=== PATIENT | female | born 1950 | race Caucasian/White ===

== ENCOUNTER 2019-03-27 00:52 | Inpatient (IN) ==
[2019-03-27] MEDS ORDERED: HYDROmorphone HCL 1 MG/ML DISP.SYRIN IV ONE ×2 (01:12→01:46)
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
[2019-03-27 01:28] LABS: Hematocrit 32.2 % (37.0-47.0); Hemoglobin 11.4 gm/dL (12.5-16.0); Mean Cell Volume 95.5 fl (78-100); Mean Corpuscular Hemoglobin 33.8 pg (27-31); Mean Corpuscular Hgb Conc 35.4 g/dl (32-36); Mean Platelet Volume 8.3 fl (8-12.5); Neutrophil # 10.8 K/mm3 (1.3-6.0); Neutrophil % 81.6 % (42-75.0); Platelet Count 255 K/mm3 (150-450); Red Blood Count 3.37 M/mm3 (4.2-5.4); Red Cell Distribution Width 11.9 % (11.5-14.0); White Blood Count 13.2 K/mm3 (4.0-10.5)
[2019-03-27] MEDS ORDERED: ONDANSETRON HCL/PF 2 MG/ML VIAL IV ONE (01:28)
[2019-03-27 01:57] LABS: Albumin * 3.5 gm/dl (3.4-5.0); Anion Gap 18.5 mmol/L (6.8-13.8); BUN/Creatinine Ratio 10.4 (9.0-21.6); Bilirubin, Total 0.4 mg/dL (0.0-1.1); Ca. Corrected For Albumin 7.7 mg/dL (8.4-10.2); Calcium * 7.6 mg/dL (7.9-10.9); Carbon Dioxide 22.1 mmol/L (24-32.6); Potassium 3.6 mmol/L (3.4-4.6); Total Protein 6.5 gm/dL (6.2-8.2)
[2019-03-27] MEDS ORDERED: NORMAL SALINE 1,000 ML IV ONE (03:11)
[2019-03-27] MEDS: NORMAL SALINE 1,000 ML IV PRN ×3 (03:51→14:24)
[2019-03-27] MEDS ORDERED: MORPHINE SULFATE 2 MG/ML DISP.SYRIN IV ONE (07:04)
--- NOTE | 2019-03-27 09:18 | ANES ---
Anesthesia Pre Procedure Eval Vitals/Labs: Last Vital Signs Temp 36.6 C 03/27/19 08:24 Pulse 80 03/27/19 08:24 Resp 20 03/27/19 08:24 BP 135/69 03/27/19 08:24 Pulse Ox 93 03/27/19 08:24 HOME MEDICATIONS Cholecalciferol (Vitamin D3) [Vitamin D3] 1,000 unit PO DAILY 03/27/19 [Last Taken Unknown] Allergies/Adverse Reactions: Allergies Allergy/AdvReac Type Severity Reaction Status Date / Time codeine Allergy Verified 03/27/19 07:39 Penicillins Allergy Verified 03/27/19 07:39 Sulfa (Sulfonamide Allergy Verified 03/27/19 07:39 Antibiotics) - Planned Procedure Planned Procedure: RIGHT HIP FRACTURE Medication List Reviewed:: Yes Allergies Verified: Yes Medical History (Updated 03/27/19 @ 02:21 by Bennie Bethea MD) No pertinent past medical history Surgical History (Updated 03/27/19 @ 01:01 by Annette Martinez) H/O section Family History (Updated 03/27/19 @ 07:38 by Adia Patel RN) Other No known problems - Family Anesthesia History Family History:: no untoward family reactions to anesthesia, no familial bleeding tendencies, no family history of clotting disorders, no family history of premature - Airway/Neck/Teeth Within Normal Limits:: Yes Teeth Condition: intact Neck Exam: full range of motion Mallampatti Score: 3 Thyromental (T-M) distance: > 6 cm Mandibulo Hyoid distance: > 3 cm - Respiratory Respiratory Physical: lungs clear Smoking Status: Current every day smoker - 1ppd, down from previous Discussed smoking cessation including day of surgery: Yes - yesterday Sleep Apnea currently treated: No Sleep Apnea by current assessment: No - although MP score difficult to assess - Cardiovascular Cardiac History: AK - By EKG, no previously known history Tolerate Activity: Fair Heart Sounds: S1 & S2, Regular - Anesthesia Assessment and Plan ASA Class: PS, II Anesthesia Type Plan: Spinal
[2019-03-27] MEDS ORDERED: ACETAMINOPHEN 325 MG TABLET PO PRN (09:32)
[2019-03-27] MEDS ORDERED: chlordiazePOXIDE HCL 25 MG CAPSULE PO PRN (09:34)
--- NOTE | 2019-03-27 10:06 | HP ---
Chief Complaint - Chief Complaint Date of Service: 03/27/19 Time of Service: 09:52 Chief Complaint: I fell and now I have right hip pain History of Present Illness: 69-year-old female with no significant past medical history was evalu ated in our ER after she was brought in by EMS for right hip pain and tenderness that occurred after she fell last night outside of her home. Patient reports she stepped into her backyard to view the full desir and when she turned around to go back inside the house she tripped and lost her balance. Patient reports falling onto her right side and has been unable to bear weight since then. She also started having muscle spasm in the area and said that she became very swollen on the right side of her hip. Patient was concerned enough to come in to the hospital. Medical History (Updated 03/27/19 @ 02:21 by Bennie Bethea MD) No pertinent past medical history Surgical History: Surgical History (Updated 03/27/19 @ 01:01 by Annette Martinez) H/O section Family History: Family History (Updated 03/27/19 @ 07:38 by Adia Patel RN) Other No known problems Social History: (Last Reviewed 03/27/19 @ 07:39 by Adia Patel RN) Tobacco: Smoking Status: Current every day smoker, 1ppd, down from previous Alcohol: alcohol intake: current alcohol intake frequency: 0-2 drinks per day Substance Use: substance use type: does not use Pets: pets and animals: dog(s) Peds Patient Hx - Developmental: No Pertinent Hx Peds Patient Hx - Medical: No Pertinent Hx Peds Patient Hx - Cardiac/Respiratory: No Pertinent Hx Peds Patient Hx - Surgical: No Surgical History Patient History - Cancer: No Hx of Cancer Review Of Systems (GEN) - Review of Systems Generalized/Overall Review: Present: No Symptoms Reported EENTM: Present: No Symptoms Reported Respiratory: Present: No Symptoms Reported Cardiac: Present: No Symptoms Reported Abdominal: Present: No Symptoms Reported Genitourinary: Present: No Symptoms Reported Musculoskeletal: Present: Joint Pain - Right hip pain and swelling Neurological: Present: No Symptoms Reported Skin: Present: No Symptoms Reported Endocrine: Present: No Symptoms Reported Allergies/Adverse Reactions: Allergies Allergy/AdvReac Type Severity Reaction Status Date / Time codeine Allergy Verified 03/27/19 07:39 Penicillins Allergy Verified 03/27/19 07:39 Sulfa (Sulfonamide Allergy Verified 03/27/19 07:39 Antibiotics) Home Medications: HOME MEDICATIONS Cholecalciferol (Vitamin D3) [Vitamin D3] 1,000 unit PO DAILY 03/27/19 [Last Taken Unknown] Exam - Exam Vital Signs: Vital Signs - Last Taken Temp 36.6 C 03/27/19 08:24 Pulse 80 03/27/19 08:24 Resp 20 03/27/19 08:24 BP 135/69 03/27/19 08:24 Pulse Ox 93 03/27/19 08:24 Constitutional: Present: Alert, Oriented x3, Cooperative, Well developed, Well nourished, Other - Patient is uncomfortable from right hip pain ENT Exam: Present: normal ENT inspection, hearing grossly normal, pharynx normal, TMs normal Eye Exam: bilateral eye: normal inspection, PERRL, EOMI Neck: Present: non-tender, full range of motion, supple, normal inspection, trachea midline Back Exam: Present: normal inspection, no CVA tenderness, no vertebral tenderness Breasts: Present: Exam deferred Respiratory: Present: chest non-tender, lungs clear, normal breath sounds, no respiratory distress, no accessory muscle use Cardiovascular/Chest: Present: normal peripheral pulses, regular rate, rhythm, no chest tenderness, no edema, no gallop, no JVD, no murmur, no rub Peripheral Pulses: carotid (R): 3+, carotid (L): 3+, femoral (R): 3+, femoral (L): 3+, dorsalis-pedis (R): 3+ Abdomen: Present: Normal bowel sounds, soft, nontender, nondistended, no rebound tenderness, no hepatospenomegaly, no masses /Rectal: Present: Exam deferred Extremity: Present: no pedal edema, no calf tenderness, lower extremity edema, leg pain, swelling, other - Right hip shortened and externally rotated with significant tenderness to palpation and edema, there are no signs of active bleeding externally and neurovascular function is intact. 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 nml as tested, normal cerebellar test, no motor/sensory deficits, alert, normal mood/affect, oriented x 3 Appearance: Present: appropriate appearance, appropriate insight, neat, no memory impairment Eye contact: Present: cooperative, good eye contact, normal speech Thoughts: Present: normal thought pattern, no apparent hallucination Diagnostic Studies: Abnormal Lab Results 03/27/19 03/27/19 Range/Units 01:12 01:12 WBC 13.2 H (4.0-10.5) K/mm3 RBC 3.37 L (4.2-5.4) M/mm3 Hgb 11.4 L (12.5-16.0) gm/dL Hct 32.2 L (37.0-47.0) % MCH 33.8 H (27-31) pg Immature Gran % (Auto) 0.50 H (0.001-0.429) % Immature Gran # (Auto) 0.06 H (0.000-0.0310) K/mm3 Neutrophils % 81.6 H (42-75.0) % Lymphocytes % 11.6 L (20-51) % Neutrophils # 10.8 H (1.3-6.0) K/mm3 Sodium 127 L (132-142) mmol/L Plasma Sodium 127 L (130-142) mmol/L Chloride 90 L (97-106) mmol/L Carbon Dioxide 22.1 L (24-32.6) mmol/L Anion Gap 18.5 H (6.8-13.8) mmol/L Est GFR (Non-Af Amer) 137 H (60-130) mL/min Calcium 7.6 L (7.9-10.9) mg/dL Calcium Adj for Albumin 7.7 L (8.4-10.2) mg/dL ALT 7 L (19-67) U/L Ethyl Alcohol 152.0 H (0.0-10.0) mg/dL Laboratory Results WBC 13.2 K/mm3 (4.0-10.5) H 03/27/19 01:12 RBC 3.37 M/mm3 (4.2-5.4) L 03/27/19 01:12 Hgb 11.4 gm/dL (12.5-16.0) L 03/27/19 01:12 Hct 32.2 % (37.0-47.0) L 03/27/19 01:12 MCV 95.5 fl (78-100) 03/27/19 01:12 MCH 33.8 pg (27-31) H 03/27/19 01:12 MCHC 35.4 g/dl (32-36) 03/27/19 01:12 RDW 11.9 % (11.5-14.0) 03/27/19 01:12 Plt Count 255 K/mm3 (150-450) 03/27/19 01:12 MPV 8.3 fl (8-12.5) 03/27/19 01:12 Immature Gran % (Auto) 0.50 % (0.001-0.429) H 03/27/19 01:12 Immature Gran # (Auto) 0.06 K/mm3 (0.000-0.0310) H 03/27/19 01:12 81.6 % (42-75.0) H 03/27/19 01:12 11.6 % (20-51) L 03/27/19 01:12 6.1 % (0.0-9) 03/27/19 01:12 0.0 % (0.0-3.0) 03/27/19 01:12 0.2 % (0.0-1.0) 03/27/19 01:12 Nucleated RBC % 0.0 k/mm3 (0-1) 03/27/19 01:12 10.8 K/mm3 (1.3-6.0) H 03/27/19 01:12 1.53 k/mm3 (1.5-3.5) 03/27/19 01:12 0.8 k/mm3 (0.0-1.0) 03/27/19 01:12 0.0 k/mm3 (0.0-0.7) 03/27/19 01:12 Absolute Basophils 0.0 k/mm3 (0.0-0.1) 03/27/19 01:12 Sodium 127 mmol/L (132-142) L 03/27/19 01:12 127 mmol/L (130-142) L 03/27/19 01:12 Potassium 3.6 mmol/L (3.4-4.6) 03/27/19 01:12 Chloride 90 mmol/L (97-106) L 03/27/19 01:12 Carbon Dioxide 22.1 mmol/L (24-32.6) L 03/27/19 01:12 18.5 mmol/L (6.8-13.8) H 03/27/19 01:12 BUN 5 mg/dL (3-23) 03/27/19 01:12 0.48 mg/dL (0.4-1.4) 03/27/19 01:12 Est GFR (Non-Af Amer) 137 mL/min (60-130) H 03/27/19 01:12 10.4 (9.0-21.6) 03/27/19 01:12 107 mg/dL (70-110) 03/27/19 01:12 Calcium 7.6 mg/dL (7.9-10.9) L 03/27/19 01:12 Calcium Adj for Albumin 7.7 mg/dL (8.4-10.2) L 03/27/19 01:12 0.4 mg/dL (0.0-1.1) 03/27/19 01:12 AST 18 U/L (0-48) 03/27/19 01:12 ALT 7 U/L (19-67) L 03/27/19 01:12 59 U/L (50-170) 03/27/19 01:12 6.5 gm/dL (6.2-8.2) 03/27/19 01:12 3.5 gm/dl (3.4-5.0) 03/27/19 01:12 Ethyl Alcohol 152.0 mg/dL (0.0-10.0) H 03/27/19 01:12 Assessment/Plan - Narrative Narrative: Patient was evaluated and medical chart was reviewed and decision to admit to [facility] with preparations for surgical repair by the orthopedic surgeon Dr. Chaney was made. Upon reviewing the patient's chart and EKG done in the ER demonstrated Q waves in multiple leads which might indicate a previous myocardial injury or ID, however upon questioning the patient denies any history of ID or any cardiac disease or any chest pain at any time during her adult life. Patient has never seen a manager field and hardly ever goes to see a doctor. She is a chronic smoker so nicotine patches were ordered to be applied daily to avoid withdrawal, patient also had an elevated alcohol level and admits to drinking 2-3 beers last night which usually does not Friday. She also reports drinking 2-3 beers almost every night over the past several years, however she denies ever being diagnosed with alcoholism. As a precaution alcohol withdrawal protocol was implemented and Librium and thiamine were ordered. Patient's labs on admission demonstrate adequate hemoglobin levels, however her CMP demonstrate hyponatremia which should improve with the IV hydration she is currently receiving. After thorough evaluation of patient and her chart, she was cleared to have surgery. We will follow-up with her after the procedure. - Assessment/Plan (1) Intertrochanteric fracture of right hip Problem: Acute (2) Fall Problem: Acute (3) Nicotine dependence Problem: Acute Qualifiers: Nicotine product type: cigarettes (4) Alcohol dependence Problem: Acute
[2019-03-27] MEDS: FAMOTIDINE 20 MG in DEXTROSE 5 % IN WATER 100 ML IV SCH ×4 (10:10→20:59)
[2019-03-27] MEDS: NICOTINE 21 MG PATC TD SCH (10:10)
[2019-03-27] MEDS: THIAMINE HCL 100 MG TABLET PO SCH (10:10)
[2019-03-27] MEDS ORDERED: ceFAZolin SODIUM 1 GM VIAL IV ONE (10:30)
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
[2019-03-27] MEDS ORDERED: RINGER'S SOLUTION,LACTATED 1,000 ML IV PRN (11:20)
--- NOTE | 2019-03-27 12:38 | ANES ---
Post Anesthesia Discharge - Transfer of Care Transfer of Care handoff given to nurse: Yes - Discharge from PACU Discharge from PACU when meets criteria: Yes - Awake and comfortable.
[2019-03-27] MEDS ORDERED: ACETAMINOPHEN 500 MG TABLET PO PRN (12:40)
[2019-03-27] MEDS ORDERED: MAG HYDROX/ALUMINUM HYD/SIMETH 30 ML UDC PO PRN (12:40)
[2019-03-27] MEDS ORDERED: MORPHINE SULFATE 2 MG/ML DISP.SYRIN IV PRN (12:40)
[2019-03-27] MEDS ORDERED: MAGNESIUM HYDROXIDE 30 ML UDC PO PRN (12:40)
--- NOTE | 2019-03-27 12:40 | OR ---
Operative Report - Dictated Report Narrative: Date: 03/27/2019 Surgeon: Karthik Chaney M.D. Automation Engineering Technician: None Preoperative diagnosis: Right intertrochanteric femur fracture Postoperative diagnosis: Right intertrochanteric femur fracture Operations and procedures: 1. Closed reduction, cephalo-medullary fixation right intertrochanteric femur fracture 2. Intraoperative interpretation of radiographs Anesthesia: Spinal Specimens: None Estimated blood loss: 200 mL Retained implants: [employer] Trigen InterTAN 130 degree size 11.5 mm by 18 centimeter nail with 85 millimeter lag screw and 80 millimeter compression screw, with distal locking screw Complications: None Indications for procedure: Raquel is a 69-year-old active and healthy female who injured the right leg after tripping and falling outside her home. They were admitted to the hospital after being evaluated in the emergency department. Once the medical provider felt that they were stable for surgical treatment, the risks and benefits alternatives were discussed. The risks of , blood clots, bleeding, infection, nerve/tendon/blood vessel injury, malunion, nonunion, failure of implants, painful implants, arthrosis, and need for additional procedures were discussed. The extremity was marked and consent was obtained on the floor. Procedure: After marking the operative extremity on the floor, the patient was taken to the operating room. A timeout was performed. IV antibiotics consisting of 1 g of Ancef were administered. A spinal anesthetic was induced by anesthesia, and the patient was then placed onto a fracture table with a well-padded perineal post. The non-operative leg was placed in a well-padded well leg allen in lithotomy position with an SCD on the leg. The operative leg was placed in a well-padded traction boot. Longitudinal traction, internal rotation, flexion, and adduction were utilized in order to reduce the fracture. Preliminary images were attained utilizing C-arm in both the AP and lateral views. This confirmed that we had obtained adequate visualization of the fracture as well as reduction. Next the hip was then prepped and draped in a standard sterile fashion. Next, the guidewire was placed percutaneously proximal to the greater trochanter to john a starting point at the tip of the greater trochanter centered on the lateral view. This was advanced down to the level below the lesser trochanter. A scalpel was utilized to dissect down to the greater trochanter in order to lace the soft tissue protector down to bone. The entry reamer was then advanced down the proximal femur to the level of the lesser trochanter. The above nail was then selected and impacted into place. The outrigger was utilized in order to confirm the appropriate depth of the nail. Using the alignment device on the outrigger, a rosemary incision was made over the lateral femur. Sharp dissection was carried through the iliotibial band down to the proximal femur. The guidewire was was placed into the femoral head in a center center position on AP and lateral views. A tip apex distance less than 25 mm combined was obtained. Once we felt that we had placed the guidewire in the appropriate position, it was measured. Next the compression screw entry drill was advanced through the lateral cortex. This was then drilled down to the appropriate depth for the compression screw, again confirming that we are within the confines the bone. The derotational bar was then placed and the lag screw was drilled to the appropriate depth. The lag screw was then secured in place ensuring that we were within the confines of the bone. The compression screw was then inserted allowing for compression while releasing the traction on the leg. Using C-arm this was visualized to allow for compression across the fracture site. Once it was felt we had adequately stabilized the intertrochanteric fracture, the distal interlocking screw was placed in a static position confirmed to be the appropriate length and within the nail on both AP and lateral views. The nail was secured allowing for controlled compression and the outrigger was removed. The wounds were then thoroughly irrigated. Final images were obtained. The hip was placed through range of motion and showed no crepitance. The deep fascia was closed with 0 Vicryl, the subcutaneous tissue with 3-0 Vicryl, and the skin was closed with nereyda. Sterile dressings of Xeroform, 4 x 4s, and tegaderm were applied. All sponge, sharp, and instrument counts were correct prior to closing the wounds. The patient was then awoken and transferred to the postanesthesia care unit in stable condition.
--- NOTE | 2019-03-27 13:10 | ANES ---
Post Anesthesia Assessment - Vital Signs Vitals: Last Vital Signs Temp 36.9 C 03/27/19 12:55 Pulse 72 03/27/19 12:55 Resp 14 03/27/19 12:55 BP 130/54 03/27/19 12:55 Pulse Ox 95 03/27/19 12:55 Airway Patency: Normal - Mental Status Level Of Consciousness: Awake, Alert, Appropriate - Pain Level Pain Score: 0 - N/V Assessment Nausea/Vomiting Presence: None Dehydration:: No
[2019-03-27] MEDS: oxyCODONE HCL/ACETAMINOPHEN 1 TAB TABLET PO PRN ×3 (14:30→23:53)
[2019-03-27] MEDS: ceFAZolin SODIUM 1 GM in DEXTROSE 5 % IN WATER 100 ML IV SCH ×2 (17:17)
[2019-03-27] MEDS: ONDANSETRON HCL/PF 2 MG/ML VIAL IV PRN ×2 (17:27→23:20)
[2019-03-27] MEDS: DOCUSATE SODIUM 100 MG CAPSULE PO SCH (20:10)
[2019-03-27] MEDS: SENNOSIDES/DOCUSATE SODIUM 1 TAB TABLET PO SCH (20:10)
[2019-03-28] MEDS: NORMAL SALINE 1,000 ML IV PRN (01:26)
[2019-03-28] MEDS: ceFAZolin SODIUM 1 GM in DEXTROSE 5 % IN WATER 100 ML IV SCH ×4 (01:27→10:23)
[2019-03-28] MEDS: oxyCODONE HCL/ACETAMINOPHEN 1 TAB TABLET PO PRN ×6 (04:12→23:42)
[2019-03-28 05:54] LABS: Mean Cell Volume 97.8 fl (78-100); Mean Corpuscular Hemoglobin 34.2 pg (27-31); Mean Platelet Volume 8.3 fl (8-12.5); Platelet Count 163 K/mm3 (150-450); Red Blood Count 2.25 M/mm3 (4.2-5.4); White Blood Count 5.1 K/mm3 (4.0-10.5)
[2019-03-28 06:05] LABS: Anion Gap 11.5 mmol/L (6.8-13.8); BUN/Creatinine Ratio 5.5 (9.0-21.6); Calcium * 7.3 mg/dL (7.9-10.9); Carbon Dioxide 25.3 mmol/L (24-32.6); Estimated Creat Clear 89.3; Potassium 3.8 mmol/L (3.4-4.6)
[2019-03-28 06:08] LABS: Hemoglobin 7.7 gm/dL (12.5-16.0)
[2019-03-28] MEDS: CHOLECALCIFEROL 1,000 UNIT CAPSULE PO SCH (08:32)
[2019-03-28] MEDS: THIAMINE HCL 100 MG TABLET PO SCH (08:32)
[2019-03-28] MEDS: DOCUSATE SODIUM 100 MG CAPSULE PO SCH ×2 (08:32→20:49)
--- NOTE | 2019-03-28 09:37 | PN ---
Subjective - Date and Time Seen Date: 03/28/19 Time: 09:33 Subjective Narrative: No events overnight. Pain controlled this am. No other complaints. Objective - Vitals Vitals: Last Vital Signs Temp 37.6 C 03/28/19 07:05 Pulse 76 03/28/19 07:05 Resp 16 03/28/19 07:05 BP 133/66 03/28/19 03:15 Pulse Ox 95 03/28/19 07:05 - Abnormal Lab Findings Abnormal Lab Findings: Abnormal Lab Results 03/28/19 03/28/19 Range/Units 05:49 05:49 RBC 2.25 L (4.2-5.4) M/mm3 Hgb 7.7 L* D (12.5-16.0) gm/dL Hct 22.0 L* D (37.0-47.0) % MCH 34.2 H (27-31) pg BUN/Creatinine Ratio 5.5 L (9.0-21.6) Calcium 7.3 L (7.9-10.9) mg/dL - Exam Exam Narrative: Gen: A&Ox4, NAD Resp: breathing nonlabored on RA CV: RRR MSK: RLE--> dressings c/d/i, mild postoperative swelling, SILT, distal cap refill brisk Cauti Physician Documentation - Urinary Catheter Management Urethral (Momin) Date of Insertion: 03/27/19 Time of Insertion: 02:44 Date of Removal: 03/28/19 Time of Removal: 06:30 Assessment/Plan Plan Narrative: 69 yo F w/ R intertrochanteric femur fracture s/p closed reduction and cephalomedullary nailing, POD #1. -WBAT -ROM as tolerated -oral pain meds -reg diet -PT/OT -acute blood loss anemia - Hgb 7.7, non-symptomatic, continue to monitor -DVT ppx: lovenox/SCDs/teds -continue care per Medicine team -dispo: continue inpatient care, discharge planning ongoing
[2019-03-28] MEDS: NICOTINE 21 MG PATC TD SCH (09:51)
[2019-03-28] MEDS: FAMOTIDINE 20 MG in DEXTROSE 5 % IN WATER 100 ML IV SCH ×4 (09:53→21:43)
[2019-03-28] MEDS: ENOXAPARIN SODIUM 40 MG/0.4 ML SYRG SC SCH (12:31)
--- NOTE | 2019-03-28 13:19 | PN ---
Subjective - Date and Time Seen Date: 03/28/19 Time: 13:10 Subjective Narrative: 69-year-old female status post ORIF of left intertrochanteric fracture day #1 was evaluated at bedside was found to be afebrile and in no acute distress. Patient reports adequate pain control at the moment and denies any new symptoms. Her wound on the right hip is covered by dry clean that bandage, there was no signs of infection or bleeding. She was evaluated by the ortho pedic surgeon this morning who ordered that the patient start PT while inpatient. Her hemoglobin has decreased to 7.5. But we will just monitor for now. Objective - Review of Systems Generalized/Overall Review: Reports: No Symptoms Reported EENTM: Reports: No Symptoms Reported Respiratory: Reports: No Symptoms Reported Cardiac: Reports: No Symptoms Reported Abdominal: Reports: No Symptoms Reported Genitourinary Symptoms: Reports: No Symptoms Reported Musculoskeletal Complaints: Reports: Joint Pain Neurological: Reports: No Symptoms Reported - Right hip pain Skin: Reports: No Symptoms Reported Endocrine: Reports: No Symptoms Reported - Vitals Vitals: Last Vital Signs Temp 36.8 C 03/28/19 11:35 Pulse 96 03/28/19 11:35 Resp 20 03/28/19 11:35 BP 154/74 H 03/28/19 11:35 Pulse Ox 94 03/28/19 11:35 - Abnormal Lab Findings Abnormal Lab Findings: Abnormal Lab Results 03/28/19 03/28/19 Range/Units 05:49 05:49 RBC 2.25 L (4.2-5.4) M/mm3 Hgb 7.7 L* D (12.5-16.0) gm/dL Hct 22.0 L* D (37.0-47.0) % MCH 34.2 H (27-31) pg BUN/Creatinine Ratio 5.5 L (9.0-21.6) Calcium 7.3 L (7.9-10.9) mg/dL - Exam Constitutional: Present: Alert, Oriented x3, Cooperative, Well developed, Well nourished, No distress ENT Exam: Present: normal ENT inspection, hearing grossly normal, pharynx normal, TMs normal Neck: Present: non-tender, full range of motion, supple, normal inspection, trachea midline Breasts: Present: Exam deferred Respiratory: Present: chest non-tender, lungs clear, normal breath sounds, no respiratory distress, no accessory muscle use Cardiovascular/Chest: Present: normal peripheral pulses, regular rate, rhythm, no chest tenderness, no edema, no gallop, no JVD, no murmur, no rub Abdomen: Present: Normal bowel sounds, soft, nontender, nondistended, no rebound tenderness, no hepatospenomegaly, no masses /Rectal: Present: Exam deferred Extremity: Present: non-tender, no pedal edema, no calf tenderness, normal capillary refill, pelvis stable, leg pain, other - Right hip covered by clean dry dressings, no signs of infection or bleeding 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: bodily injury adjuster II-XII nml as tested, normal cerebellar test, no motor/sensory deficits, alert, normal mood/affect, oriented x 3 Appearance: Present: appropriate appearance, appropriate insight, neat, no memory impairment Eye contact: Present: cooperative, good eye contact, normal speech Thoughts: Present: normal thought pattern, no apparent hallucination Cauti Physician Documentation - Urinary Catheter Management Urethral (Momin) Urethral Indwelling: No Date of Insertion: 03/27/19 Time of Insertion: 02:44 Date of Removal: 03/28/19 Time of Removal: 06:30 Assessment/Plan Plan Narrative: We will follow-up with labs in the morning to evaluate hemoglobin levels, in the meantime patient will continue inpatient physical therapy. Will follow further recommendation from Ortho. - Problems/Diagnosis (1) Intertrochanteric fracture of right hip Problem: Acute (2) Fall Problem: Acute (3) Nicotine dependence Problem: Acute Qualifiers: Nicotine product type: cigarettes (4) Alcohol dependence Problem: Acute (5) History of open reduction and internal fixation (ORIF) procedure Problem: Acute
[2019-03-28] MEDS: SENNOSIDES/DOCUSATE SODIUM 1 TAB TABLET PO SCH (20:50)
[2019-03-29] MEDS: oxyCODONE HCL/ACETAMINOPHEN 1 TAB TABLET PO PRN ×4 (04:31→19:29)
[2019-03-29 06:09] LABS: Hemoglobin 8.3 gm/dL (12.5-16.0); Mean Cell Volume 97.6 fl (78-100); Mean Corpuscular Hemoglobin 33.7 pg (27-31); Mean Corpuscular Hgb Conc 34.6 g/dl (32-36); Platelet Count 205 K/mm3 (150-450); Red Blood Count 2.46 M/mm3 (4.2-5.4); Red Cell Distribution Width 11.9 % (11.5-14.0); White Blood Count 7.4 K/mm3 (4.0-10.5)
[2019-03-29 06:13] LABS: Hematocrit 25.2 % (37.0-47.0)
[2019-03-29 06:25] LABS: Anion Gap 11.2 mmol/L (6.8-13.8); BUN/Creatinine Ratio 4.1 (9.0-21.6); Calcium * 7.9 mg/dL (7.9-10.9); Carbon Dioxide 27.2 mmol/L (24-32.6); Estimated Creat Clear 100.2; Potassium 3.4 mmol/L (3.4-4.6)
--- NOTE | 2019-03-29 07:51 | PN ---
Subjective - Date and Time Seen Date: 03/29/19 Time: 07:30 Subjective Narrative: Patient reports no acute events. She notes she has been up walking with physical therapy. She notes her pain is well controlled with p.o. pain medication. She notes her pain is worse with weightbearing better with rest. She notes no other acute complaints. She does note that she has had no significant appetite however she is tolerating p.o. food. Objective - Vitals Vitals: Last Vital Signs Temp 36.8 C 03/29/19 06:29 Pulse 84 03/29/19 06:29 Resp 16 03/29/19 06:29 BP 156/74 H 03/29/19 06:29 Pulse Ox 95 03/29/19 06:29 - Abnormal Lab Findings Abnormal Lab Findings: Abnormal Lab Results 03/29/19 03/29/19 Range/Units 05:55 05:55 RBC 2.46 L (4.2-5.4) M/mm3 Hgb 8.3 L (12.5-16.0) gm/dL Hct 25.2 L (37.0-47.0) % MCH 33.7 H (27-31) pg Sodium 128 L (132-142) mmol/L Plasma Sodium 128 L (130-142) mmol/L Chloride 93 L (97-106) mmol/L BUN 2 L (3-23) mg/dL Est GFR (Non-Af Amer) 134 H (60-130) mL/min BUN/Creatinine Ratio 4.1 L (9.0-21.6) Random Glucose 116 H (70-110) mg/dL - Exam Constitutional: Present: Alert, No distress Respiratory: Present: no respiratory distress Extremity: Present: other - RLE--> bandages clean/dry/intact, sensation intact light touch, 4+/5 knee flexion and extension, distal capillary refill brisk, diffuse mild tenderness about right hip Eye contact: Present: cooperative Thoughts: Present: normal thought pattern Cauti Physician Documentation - Urinary Catheter Management Urethral (Momin) Urethral Indwelling: No Date of Insertion: 03/27/19 Time of Insertion: 02:44 Date of Removal: 03/28/19 Time of Removal: 06:30 Assessment/Plan Plan Narrative: 69 yo F w/ R intertrochanteric femur fracture s/p closed reduction and cephalomedullary nailing, POD #2. -WBAT -ROM as tolerated -oral pain meds -reg diet -PT/OT -acute blood loss anemia - 8.3 asymptomatic -DVT ppx: lovenox/SCDs/teds -continue care per Medicine team -Hyponatremia- recommendations per medicine -dispo: continue inpatient care [place] or [place], continue to monitor to meet all PT goals, continue pain control, continue to monitor for postop complications, discharge planning ongoing - Problems/Diagnosis (1) Intertrochanteric fracture of right hip Problem: Acute
[2019-03-29] MEDS: THIAMINE HCL 100 MG TABLET PO SCH (09:04)
[2019-03-29] MEDS: CHOLECALCIFEROL 1,000 UNIT CAPSULE PO SCH (09:04)
[2019-03-29] MEDS: NICOTINE 21 MG PATC TD SCH (09:04)
[2019-03-29] MEDS: DOCUSATE SODIUM 100 MG CAPSULE PO SCH ×2 (09:04→20:14)
[2019-03-29] MEDS: FAMOTIDINE 20 MG in DEXTROSE 5 % IN WATER 100 ML IV SCH ×2 (09:07)
[2019-03-29] MEDS: ENOXAPARIN SODIUM 40 MG/0.4 ML SYRG SC SCH (11:24)
[2019-03-29] MEDS ORDERED: NORMAL SALINE 1,000 ML IV ONE (12:06)
--- NOTE | 2019-03-29 12:16 | PN ---
Subjective - Date and Time Seen Date: 03/29/19 Time: 12:13 Subjective Narrative: My pain is adequately controlled no complaints Objective Objective Narrative: 69-year-old female status post right femoral fracture repair day #2 was evaluated at bedside and was found to be afebrile and in no acute distress. Labs this morning demonstrates stabilization of her hemoglobin in fact the hemoglobin has increased slightly, however the patient was found to have moderate hyponatremia which will require correction. Therefore IV fluid with normal saline has been ordered and we will repeat labs in the morning. Discharge planning is underway and patient is to be released to a rehab facility to undergo PT and OT before going home. - Review of Systems Generalized/Overall Review: Reports: No Symptoms Reported EENTM: Reports: No Symptoms Reported Respiratory: Reports: No Symptoms Reported Cardiac: Reports: No Symptoms Reported Abdominal: Reports: No Symptoms Reported Genitourinary Symptoms: Reports: No Symptoms Reported Musculoskeletal Complaints: Reports: Joint Pain - Right hip pain Neurological: Reports: No Symptoms Reported Skin: Reports: No Symptoms Reported Endocrine: Reports: No Symptoms Reported - Vitals Vitals: Last Vital Signs Temp 36.9 C 03/29/19 11:08 Pulse 88 03/29/19 11:08 Resp 16 03/29/19 11:08 BP 138/70 03/29/19 11:08 Pulse Ox 98 03/29/19 11:08 - Abnormal Lab Findings Abnormal Lab Findings: Abnormal Lab Results 03/29/19 03/29/19 Range/Units 05:55 05:55 RBC 2.46 L (4.2-5.4) M/mm3 Hgb 8.3 L (12.5-16.0) gm/dL Hct 25.2 L (37.0-47.0) % MCH 33.7 H (27-31) pg Sodium 128 L (132-142) mmol/L Plasma Sodium 128 L (130-142) mmol/L Chloride 93 L (97-106) mmol/L BUN 2 L (3-23) mg/dL Est GFR (Non-Af Amer) 134 H (60-130) mL/min BUN/Creatinine Ratio 4.1 L (9.0-21.6) Random Glucose 116 H (70-110) mg/dL - Exam Constitutional: Present: Alert, Oriented x3, Cooperative, Well developed, Well nourished, No distress ENT Exam: Present: normal ENT inspection, hearing grossly normal, pharynx normal, TMs normal Neck: Present: non-tender, full range of motion, supple, normal inspection, trachea midline Breasts: Present: Exam deferred Respiratory: Present: chest non-tender, lungs clear, normal breath sounds, no respiratory distress, no accessory muscle use Cardiovascular/Chest: Present: normal peripheral pulses, regular rate, rhythm, no chest tenderness, no edema, no gallop, no JVD, no murmur, no rub Abdomen: Present: Normal bowel sounds, soft, nontender, nondistended, no rebound tenderness, no hepatospenomegaly, no masses /Rectal: Present: Exam deferred Extremity: Present: non-tender, normal inspection, no pedal edema, no calf tenderness, normal capillary refill, pelvis stable, other - Right hip covered by dry clean bandage no sign of hemorrhage 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: carbon furnace operator II-XII nml as tested, normal cerebellar test, no motor/sensory deficits, alert, normal mood/affect, oriented x 3 Appearance: Present: appropriate appearance, appropriate insight, neat, no memory impairment Eye contact: Present: cooperative, good eye contact, normal speech Thoughts: Present: normal thought pattern, no apparent hallucination Cauti Physician Documentation - Urinary Catheter Management Urethral (Momin) Urethral Indwelling: No Date of Insertion: 03/27/19 Time of Insertion: 02:44 Date of Removal: 03/28/19 Time of Removal: 06:30 Assessment/Plan Plan Narrative: We will treat patient with IV hydration to treat her hyponatremia and order follow-up labs for tomorrow morning for reevaluation. In the meantime we will continue working on discharge planning to 1 of the nearby rehab facilities. - Problems/Diagnosis (1) Intertrochanteric fracture of right hip Problem: Acute (2) Fall Problem: Acute (3) Nicotine dependence Problem: Acute Qualifiers: Nicotine product type: cigarettes (4) Alcohol dependence Problem: Acute (5) History of open reduction and internal fixation (ORIF) procedure Problem: Acute (6) Hyponatremia Problem: Acute
[2019-03-29] MEDS: SENNOSIDES/DOCUSATE SODIUM 1 TAB TABLET PO SCH (20:14)
[2019-03-30] MEDS: oxyCODONE HCL/ACETAMINOPHEN 1 TAB TABLET PO PRN ×4 (00:35→13:12)
--- NOTE | 2019-03-30 08:01 | PN ---
Progesjose Note - Interim Date: 03/30/19 Time: 07:58 Narrative: Patient reports no acute events. She notes her pain is improving. She notes she has been able to ambulate well with physical therapy's assistance. Exam today reveals bandages clean, dry, intact, sensation intact light touch, distal capillary refill brisk, mild diffuse tenderness about right hip. Discussed with patient discharge planning to a care home facility. Plan to discharge on 03/30/2019 to [facility]. Patient can continue with the following recommendations. 69 yo F w/ R intertrochanteric femur fracture s/p closed reduction and cephalomedullary nailing, POD #3. -WBAT -ROM as tolerated -oral pain meds -reg diet as tolerated -PT/OT progress as tolerated, assistive device PRN -acute blood loss anemia - 8.3 asymptomatic -DVT ppx: lovenox 4 weeks followed by 325 aspirin daily/SCDs/teds -continue care per Medicine team -Hyponatremia- recommendations per medicine -Dressing changes as needed -Follow-up in orthopedic outpatient clinic at 2 weeks postoperative -dispo: Discharged to [facility]. Follow-up in orthopedic outpatient clinic. Call with any acute questions or concerns. 03/30/19 07:58
[2019-03-30] MEDS: THIAMINE HCL 100 MG TABLET PO SCH (08:05)
[2019-03-30] MEDS: DOCUSATE SODIUM 100 MG CAPSULE PO SCH (08:05)
[2019-03-30] MEDS: CHOLECALCIFEROL 1,000 UNIT CAPSULE PO SCH (08:41)
[2019-03-30 11:59] LABS: Anion Gap 11.5 mmol/L (6.8-13.8); BUN/Creatinine Ratio 5.8 (9.0-21.6); Calcium * 8.3 mg/dL (7.9-10.9); Carbon Dioxide 27.5 mmol/L (24-32.6); Estimated Creat Clear 94.5
--- NOTE | 2019-03-30 12:02 | DS ---
(1) Intertrochanteric fracture of right hip Problem: Acute (2) Fall Problem: Acute (3) Nicotine dependence Problem: Chronic Qualifiers: Nicotine product type: cigarettes (4) Alcohol dependence Problem: Chronic (5) History of open reduction and internal fixation (ORIF) procedure Problem: Acute (6) Hyponatremia Problem: Acute Date of Discharge:: 03/30/19 Description of Stay: 69-year-old female status post repair of right femoral intertrochant christie fracture was evaluated at bedside and was found to be afebrile and in no acute distress. Patient underwent a successful surgical intervention to repair her fracture, there were no adverse events reported and she tolerated the procedure well. She has been undergoing inpatient physical therapy as ordered by her orthopedic surgeon and tolerated therapy without any issues. Presently she reports adequate control of her pain and denies any other new symptoms. She was evaluated by the orthopedic team and they cleared her for discharge to a rehab facility with instructions to continue anticoagulation with Lovenox and then aspirin as well as SCDs or MAURI hose. Therefore decision to discharge patient to the rehab facility was made, patient will be picked up by transport service shortly. Procedures Performed: see notes below List Procedures: Repair of right femoral intertrochanteric fracture Results and Findings: Lab Pending Results 03/27/19 01:12: WBC 13.2 H, RBC 3.37 L, Hgb 11.4 L, Hct 32.2 L, MCV 95.5, MCH 33.8 H, MCHC 35.4, RDW 11.9, Plt Count 255, MPV 8.3, Immature Gran % (Auto) 0.50 H, Immature Gran # (Auto) 0.06 H, Neutrophils % 81.6 H, Lymphocytes % 11.6 L, Monocytes % 6.1, Eosinophils % 0.0, Basophils % 0.2, Nucleated RBC % 0.0, Neutrophils # 10.8 H, Lymphocytes # 1.53, Monocytes # 0.8, Eosinophils # 0.0, Absolute Basophils 0.0 03/27/19 01:12: Sodium 127 L, Plasma Sodium 127 L, Potassium 3.6, Chloride 90 L, Carbon Dioxide 22.1 L, Anion Gap 18.5 H, BUN 5, Creatinine 0.48, Est GFR (Non-Af Amer) 137 H, BUN/Creatinine Ratio 10.4, Random Glucose 107, Calcium 7.6 L, Calcium Adj for Albumin 7.7 L, Total Bilirubin 0.4, AST 18, ALT 7 L, Alkaline Phosphatase 59, Total Protein 6.5, Albumin 3.5, Ethyl Alcohol 152.0 H 03/28/19 05:49: WBC 5.1 D, RBC 2.25 L, Hgb 7.7 L* D, Hct 22.0 L* D, MCV 97.8, MCH 34.2 H, MCHC 35.0, RDW 12.0, Plt Count 163, MPV 8.3 03/28/19 05:49: Sodium 133, Plasma Sodium 133, Potassium 3.8, Chloride 100, Carbon Dioxide 25.3, Anion Gap 11.5, BUN 3, Creatinine 0.55, Est GFR (Non-Af Amer) 117, BUN/Creatinine Ratio 5.5 L, Random Glucose 103, Calcium 7.3 L 03/29/19 05:55: WBC 7.4 D, RBC 2.46 L, Hgb 8.3 L, Hct 25.2 L, MCV 97.6, MCH 33.7 H, MCHC 34.6, RDW 11.9, Plt Count 205, MPV 9.0 03/29/19 05:55: Sodium 128 L, Plasma Sodium 128 L, Potassium 3.4, Chloride 93 L, Carbon Dioxide 27.2, Anion Gap 11.2, BUN 2 L, Creatinine 0.49, Est GFR (Non-Af Amer) 134 H, BUN/Creatinine Ratio 4.1 L, Random Glucose 116 H, Calcium 7.9 [address]charge Location: [facility] Disposition: SNF Condition: Stable Face to Face Encounter completed per [facility] Guidelines: No Level of Care: SNF Discharge Activity: Weight bearing Discharge Diet: General/regular food Halfway Therapy: Physical Therapy, Occupation Therapy Problem Oriented Discharge Instructions to Patient/Family: Smoking Cessation, Tips for Success, [id number] Additional Patient Instructions (free text): 14 day post op follow up with ortho. no sooner than 14 days Keep dressing C/D/I. Change as needed for drainage with dry gauze and tape. 4 weeks Lovenox followed by 4 weeks 325mg ASA. Prescriptions (Any new or edited meds): Aspirin 325 mg PO DAILY 120 Days #120 tab Enoxaparin Sodium [Lovenox] 40 mg SQ DAILY 28 Days #28 ml oxyCODONE HCL/ACETAMINOPHEN [Percocet 5 MG/325 MG] 1 tab PO Q6H PRN #40 tab PRN Reason: Pain Complete Home Medications List: Complete Home Medication List: Cholecalciferol (Vitamin D3) [Vitamin D3] 1,000 unit PO DAILY 03/27/19 Aspirin 325 mg PO DAILY 120 Days #120 tab 03/30/19 Enoxaparin Sodium [Lovenox] 40 mg SQ DAILY 28 Days #28 ml 03/30/19 oxyCODONE HCL/ACETAMINOPHEN [Percocet 5 MG/325 MG] 1 tab PO Q6H PRN #40 tab 03/30/19
[2019-03-30] MEDS: ENOXAPARIN SODIUM 40 MG/0.4 ML SYRG SC SCH (13:12)
[2019-03-30 13:15] VITALS: BP 142/64
== END 2019-03-30 13:30 | DRG 481 ==
LOC: ER 00:52 → MS 03:09
PROVIDERS: ADMIT Family Medicine; ATTEND Family Medicine
DX: E87.1 Hypo-osmolality and hyponatremia; F10.20 Alcohol dependence, uncomplicated; F17.210 Nicotine dependence, cigarettes, uncomplicated; W01.0XXA Fall on same level from slipping, tripping and stumbling without subsequent striking against object, initial encounter; S72.141A Displaced intertrochanteric fracture of right femur, initial encounter for closed fracture; Y92.096 Garden or yard of other non-institutional residence as the place of occurrence of the external cause; D62 Acute posthemorrhagic anemia
CPT/HCPCS: 36415; 71010; 71045; 72170; 73502; 76000; 80048; 80053; 80320; 85025; 85027; 93005; 96374; 96375; 96376; 97110; 97116; 97161; 97165; 97530; 99285; G0481; J2405